=== PATIENT | male | born 1960 | race Caucasian/White ===

== ENCOUNTER 2024-03-17 07:44 | Observation (INO) | payer BC ==
[2024-03-10 15:17] LABS: BASOPHILS # (AUTO) 0.1 (0.0-0.1); BASOPHILS % 1.2 % (0.0-1.0); EOSINOPHILS # (AUTO) 0.1 (0.0-0.4); EOSINOPHILS % 1.8 % (0.0-6.0); HEMATOCRIT 48.6 % (38.2-49.6); HEMOGLOBIN 16.3 g/dL (14.0-18.0); LYMPHOCYTES # (AUTO) 1.1 (1.0-3.2); LYMPHOCYTES % 20.9 % (18.0-39.1); MEAN CORPUSCULAR HEMOGLOBIN 29.5 pg (28-32); MEAN CORPUSCULAR HGB CONC 33.5 g/dL (31-35); MEAN CORPUSCULAR VOLUME 87.9 fL (81-99); MONOCYTES # (AUTO) 0.5 (0.2-0.8); MONOCYTES % 9.8 % (4.4-11.3); NEUTROPHILS # (AUTO) 3.3 (2.1-6.9); NEUTROPHILS % 65.3 % (38.7-80.0); PLATELET COUNT 187 x10e3/uL (140-360); RED BLOOD COUNT 5.53 x10e6/uL (4.3-5.7); RED CELL DISTRIBUTION WIDTH 12.9 % (11.7-14.4); WHITE BLOOD COUNT 5.11 x10e3/uL (4.8-10.8)
[2024-03-10 15:47] LABS: ANION GAP 16.3 mmol/L (8-16); CALCIUM 9.4 mg/dL (8.4-10.2); CREATININE, SERUM 1.25 mg/dL (0.72-1.25); POTASSIUM 4.3 mmol/L (3.5-5.1)
[~2024-03-17] VITALS: Ht 193 cm; Wt 86.2 kg
[~2024-03-17 07:44] MED LIST: JANUVIA100 MG PO; JARDIANCE25 MG PO; LIPITOR20 MG PO; PRECOSE50 MG PO; SAXAGLIPTIN; TUMERIC; Z.0.CRESTOR5 MG PO
[2024-03-17] MEDS ORDERED: LIDOCAINE JELLY 2% 10ML URO-JET ONE ×2 (09:24→19:09)
[2024-03-17] MEDS ORDERED: BUPIVACAINE/EPINEPHRINE 0.25% 10 ML SDV INJ ONE (09:24)
[2024-03-17] MEDS ORDERED: BUPIVACAINE 0.25% 30ML SDV ONE ×2 (09:26→19:09)
[2024-03-17] MEDS ORDERED: LIDOCAINE 1% W/EPINEPHRINE 20 ML VIAL ONE ×2 (09:26→19:09)
[2024-03-17] MEDS ORDERED: PHENYLEPHRINE HCL 1% 10 MG/ML VIAL ONE (10:38)
[2024-03-17] MEDS ORDERED: LIDOCAINE HCL 2% LOCAL INJ 5 ML SDV VIAL INJ ONE (10:38)
[2024-03-17] MEDS ORDERED: SEVOFLURANE INHAL SOLN 250 ML PEN BTL ONE (10:38)
[2024-03-17] MEDS ORDERED: ONDANSETRON HCL INJ 2MG/ML 2ML 2 MG/ML VIAL ONE (10:38)
[2024-03-17] MEDS ORDERED: PROPOFOL IV EMULSION 10 MG/ML 20 ML VIAL ONE (10:38)
[2024-03-17] MEDS ORDERED: DEXAMETHASONE SOD PHOS INJ 4 MG/ML SDV ONE (10:38)
[2024-03-17] MEDS: INSULIN REGULAR, HUMAN 100 UNIT/1 ML SQ SCH (12:00)
[2024-03-17] MEDS ORDERED: HYDROMORPHONE 0.2MG/ML-SOD CHL 30ML PCA SYRINGE IV PRN (12:00)
[2024-03-17] MEDS: SODIUM CHLORIDE 0.9% 1000ML 1,000 ML IV SCH (12:00)
[2024-03-17] MEDS ORDERED: NALOXONE HCL INJ 0.4 MG/ML AMP IV PRN (12:00)
[2024-03-17] MEDS ORDERED: DEXTROSE 50% SYRINGE 50 ML IV PRN (13:30)
[2024-03-17] MEDS ORDERED: ACETAMINOPHEN 1000 MG/100 ML IV PRN (15:00)
[2024-03-17 16:00] VITALS: BP 113/71; PULSE 99; RESP 19; TEMP 98.2; O2SAT 100
[2024-03-17] MEDS ORDERED: VERAPAMIL HCL 2.5 MG/ML 2 ML VIAL ONE (16:00)
[2024-03-17] MEDS ORDERED: FENTANYL CITRATE/PF 100MCG/2 ML INJ ONE (16:00)
[2024-03-17] MEDS: LEVOFLOXACIN 500MG/D5W 100ML 100 ML IV ONE (16:42)
[2024-03-17 16:46] LABS: BASOPHILS # (AUTO) 0.1 (0.0-0.1); BASOPHILS % 0.5 % (0.0-1.0); HEMATOCRIT 51.3 % (38.2-49.6); HEMOGLOBIN 16.8 g/dL (14.0-18.0); LYMPHOCYTES # (AUTO) 0.3 (1.0-3.2); LYMPHOCYTES % 3.3 % (18.0-39.1); MEAN CORPUSCULAR HEMOGLOBIN 29.6 pg (28-32); MEAN CORPUSCULAR HGB CONC 32.7 g/dL (31-35); MEAN CORPUSCULAR VOLUME 90.5 fL (81-99); MONOCYTES # (AUTO) 0.1 (0.2-0.8); MONOCYTES % 0.9 % (4.4-11.3); NEUTROPHILS # (AUTO) 9.1 (2.1-6.9); NEUTROPHILS % 94.5 % (38.7-80.0); PLATELET COUNT 159 x10e3/uL (140-360); RED BLOOD COUNT 5.67 x10e6/uL (4.3-5.7); RED CELL DISTRIBUTION WIDTH 12.8 % (11.7-14.4); WHITE BLOOD COUNT 9.61 x10e3/uL (4.8-10.8)
[2024-03-17 16:48] LABS: ANION GAP 23.5 mmol/L (8-16); CALCIUM 9.1 mg/dL (8.4-10.2); CREATININE, SERUM 1.15 mg/dL (0.72-1.25)
[2024-03-17 16:50] LABS: POTASSIUM 5.5 mmol/L (3.5-5.1)
[2024-03-17 19:23] VITALS: BP 113/71; PULSE 99; RESP 19; TEMP 98.2; O2SAT 100
[2024-03-17 19:42] VITALS: BP 113/71; PULSE 99; RESP 19; TEMP 98.2; O2SAT 100
[2024-03-17 20:12] VITALS: PULSE 101; RESP 18; O2SAT 96
[2024-03-17 20:30] VITALS: BP 113/65; PULSE 101; RESP 17; TEMP 98.5; O2SAT 96
[2024-03-18 00:35] VITALS: BP 111/64; PULSE 103; RESP 18; TEMP 97.7; O2SAT 98
[2024-03-18 08:00] VITALS: BP 111/64; PULSE 103; RESP 18; TEMP 97.7; O2SAT 98
[2024-03-18 10:27] VITALS: PULSE 105; RESP 18; O2SAT 94
[2024-03-18] MEDS ORDERED: SODIUM CHLORIDE 0.9% 1000 ML BAG ONE (11:17)
[2024-03-18] MEDS ORDERED: ONDANSETRON HCL INJ 2MG/ML 2ML 2 MG/ML VIAL ONE (11:17)
[2024-03-18] MEDS ORDERED: SITAGLIPTIN 100 MG TAB ONE (11:17)
[2024-03-18] MEDS: SITAGLIPTIN 100 MG TAB PO SCH (12:24)
[2024-03-18] MEDS: ONDANSETRON HCL INJ 2MG/ML 2ML 2 MG/ML VIAL IV PRN (12:24)
[2024-03-18] MEDS: (Empagliflozin (Jardiance) 25 MG) PO SCH (12:28)
[2024-03-18] MEDS: HYDROCODONE/APAP 7.5MG-325MG 1 EA TAB PO PRN (14:05)
[2024-03-18 16:30] VITALS: BP 123/70; PULSE 96; RESP 18; TEMP 99.1; O2SAT 100
== END 2024-03-18 19:08 | disposition home or self-care (01) ==
LOC: OR 07:44 → PACU V 11:50 → MED/SURG 12:58
PROVIDERS: ADMIT Surgery; ATTEND Surgery
DX: K64.5 Perianal venous thrombosis (principal); K64.8 Other hemorrhoids; E11.9 Type 2 diabetes mellitus without complications; Z79.84 Long term (current) use of oral hypoglycemic drugs; E78.5 Hyperlipidemia, unspecified; Z01.812 Encounter for preprocedural laboratory examination; Z79.899 Other long term (current) drug therapy; Z88.5 Allergy status to narcotic agent; Z88.0 Allergy status to penicillin
CPT/HCPCS: 36415 ×3; 46260; 80048 ×2; 82948 ×2; 85025 ×2; 88304; 94799 ×2; G0378 ×2; J1100; J2001; J2371; J2405 ×2; J2704; J3010; J7030